=== PATIENT | male | born 1995 | race Caucasian/White ===

== ENCOUNTER 2018-02-28 | Emergency (ER) | payer OTHER, SELFPAY ==
[2018-02-28] MEDS ORDERED: HYDROCODONE/APAP 10/325 TAB ONE (00:40)
[2018-02-28] MEDS ORDERED: TETANUS & DIPHTHERIA TOX,ADULT 0.5 ML VIAL ONE (00:41)
--- NOTE | 2018-02-28 02:19 | ER ---
Nurse's Notes [facility] Name: Severino Yin Age: 22 yrs Sex: Male : 1995 Arrival Date: 02/28/2018 Time: 00:01 Bed 2 Private MD: Diagnosis: Puncture wound without foreign body of left hand Presentation: 02/28 00:15 Presenting complaint: Patient states: "I was fishing and I got a catfish spine in my jd3 left ring finger. As far as I know I pulled it all out, it just is hurting.". Transition of care: patient was not received from another setting of care. Onset of symptoms was February 28, 2018. Risk Assessment: Do you want to hurt yourself or someone else? Patient reports no desire to harm self or others. Initial Sepsis Screen: Does the patient meet any 2 criteria? No. Patient's initial sepsis screen is negative. Does the patient have a suspected source of infection? No. Patient's initial sepsis screen is negative. Care prior to arrival: None. 00:15 Method Of Arrival: Ambulatory j 00:15 Acuity: MARILEE 3 jd3 Triage Assessment: 00:25 Injury Description: Puncture sustained to palmar aspect of distal phalanx of left ring jd3 finger is superficial. Historical: - Allergies: 00:18 No Known Allergies; jd3 - Home Meds: 00:18 None [Active]; jd3 - PMHx: 00:18 None; jd3 - PSHx: 00:18 None; jd3 - Immunization history:: Adult Immunizations up to date, Flu vaccine is not up to date. - Social history:: Smoking status: Patient uses tobacco products, stopped 3 moths ago.. - Ebola Screening: : Patient negative for fever greater than or equal to 101.5 degrees Fahrenheit, and additional compatible Ebola Virus Disease symptoms. Screenin:24 Abuse screen: Denies threats or abuse. Nutritional screening: No deficits noted. jd3 Tuberculosis screening: No symptoms or risk factors identified. Fall Risk Ambulatory Aid- None/Bed Rest/Nurse Assist (0 pts). Gait- Normal/Bed Rest/Wheelchair (0 pts) Mental Status- Oriented to own ability (0 pts). Total [place] O Fall Scale indicates No Risk (0-24 pts). Assessment: 00:20 General: Appears in no apparent distress. uncomfortable, Behavior is calm, cooperative, jd3 appropriate for age, Smells of alcohol. Pain: Complains of pain in palmar aspect of distal phalanx of left ring finger Quality of pain is described as aching, tender. Neuro: Level of Consciousness is awake, alert, obeys commands, Oriented to person, place, time, situation. Cardiovascular: Capillary refill < 3 seconds Patient's skin is warm and dry. Respiratory: Airway is patent Respiratory effort is even, unlabored, Respiratory pattern is regular, symmetrical. GI: No signs and/or symptoms were reported involving the gastrointestinal system. : No signs and/or symptoms were reported regarding the genitourinary system. EENT: No signs and/or symptoms were reported regarding the EENT system. Derm: Skin is intact, Skin is dry, Skin is normal, Skin temperature is warm Wound noted palmar aspect of distal phalanx of left ring finger Wound is small puncture wound, about 1 cm in length, with small amount of bleeding, redness noted to the site. Musculoskeletal: Circulation, motion, and sensation intact. Range of motion: intact in all extremities. 01:43 Reassessment: Patient appears in no apparent distress at this time. Patient and/or jd3 family updated on plan of care and expected duration. Pain level reassessed. Patient is alert, oriented x 3, equal unlabored respirations, skin warm/dry/pink. Patient states feeling better. Vital Signs: 00:18 BP 140 / 82; Pulse 101; Resp 16 S; Temp 98.5(O); Pulse Ox 100% on R/A; Weight 86.18 kg jd3 (R); Height 6 ft. 2 in. (187.96 cm) (R); Pain 7/10; 01:43 BP 133 / 85; Pulse 93; Resp 16 S; Pulse Ox 95% on R/A; jd3 00:18 Body Mass Index 24.39 (86.18 kg, 187.96 cm) d3 ED Course: 00:01 Patient arrived in ED. am2 00:11 Merlin Hamilton, RN is Primary Nurse. jd3 00:17 Triage completed. jd3 00:20 Arm band placed on. jd3 00:24 Patient has correct armband on for positive identification. Bed in low position. Call j light in reach. Side rails up X2. Adult w/ patient. 00:25 Emerson Varma NP is PHCP. pm1 00:25 Home Knapp MD is Attending Physician. pm1 01:20 X-ray completed. Portable x-ray completed in exam room. Patient tolerated procedure mh1 well. 01:21 Hand Left 3 View XRAY In Process Unspecified. EDMS 02:17 David Tavares MD is Referral Physician. pm1 02:27 No provider procedures requiring assistance completed. Patient did not have IV access jd3 during this emergency room visit. Administered Medications: 00:39 Drug: Tetanus-Diphtheria Toxoid Adult 0.5 ml {Electroplater Automatic: [employer]. Exp: jd3 02/12/2020. Lot #: [id number]. } Route: IM; Site: left deltoid; 02:13 Follow up: Response: No adverse reaction jd3 00:39 Drug: [place] 10 mg-325 mg 1 tabs Route: PO; jd3 02:13 Follow up: Response: No adverse reaction jd3 02:17 Drug: Doxycycline 100 mg Route: PO; jd3 02:28 Follow up: Response: Medication administered at discharge. jd3 Outcome: 02:18 Discharge ordered by MD. pm1 02:27 Discharged to home ambulatory, with family. jd3 02:27 Condition: stable 02:27 Discharge instructions given to patient, family, Instructed on discharge instructions, follow up and referral plans. medication usage, Demonstrated understanding of instructions, follow-up care, medications, Prescriptions given X 2. 02:28 Patient left the ED. jd3 Signatures: Dispatcher [employer] EDSD Tasneem Gupta [facility] Emerson Varma NP BOTTLE WASHING MACHINE OPERATOR pm1 Edwige Boateng 2 Merlin Hamilton RN RN jd3 Corrections: (The following items were deleted from the chart) 00:41 00:15 Acuity: MARILEE 4 jd3 jd3
--- NOTE | 2018-02-28 02:19 | EDPHYS ---
Physician Documentation [facility] Name: Severino Yin Age: 22 yrs Sex: Male : 1995 Arrival Date: 02/28/2018 Time: 00:01 Bed 2 Private MD: ED Physician Home Knapp HPI: 02/28 00:57 This 22 yrs old Male presents to ER via Ambulatory with complaints of Finger pm1 Injury. 00:57 The patient or guardian reports a puncture wound, catfish spine. The complaints affect pm1 the palmar aspect of distal phalanx of left ring finger. Context: [place] head catfish. Onset: The symptoms/episode began/occurred just prior to arrival. Modifying factors: The symptoms are alleviated by nothing, the symptoms are aggravated by nothing. Associated signs and symptoms: Pertinent negatives: cyanosis distally, decreased sensation distally, fever, numbness distally, tingling distally. Severity of symptoms: in the emergency department the symptoms are unchanged. The patient has not experienced similar symptoms in the past. The patient has not recently seen a physician. Fishing in [place] and got punctured in left ring finger by catfish spine. he pulled the catfish off of him and he saw that the spine was intact. Historical: - Allergies: 00:18 No Known Allergies; jd3 - Home Meds: 00:18 None [Active]; jd3 - PMHx: 00:18 None; jd3 - PSHx: 00:18 None; jd3 - Immunization history:: Adult Immunizations up to date, Flu vaccine is not up to date. - Social history:: Smoking status: Patient uses tobacco products, stopped 3 moths ago.. - Ebola Screening: : Patient negative for fever greater than or equal to 101.5 degrees Fahrenheit, and additional compatible Ebola Virus Disease symptoms. ROS: 01:00 Constitutional: Negative for fever, chills, and weight loss, Eyes: Negative for injury, pm1 pain, redness, and discharge, ENT: Negative for injury, pain, and discharge, Neck: Negative for injury, pain, and swelling, Cardiovascular: Negative for chest pain, palpitations, and edema, Respiratory: Negative for shortness of breath, cough, wheezing, and pleuritic chest pain, Abdomen/GI: Negative for abdominal pain, nausea, vomiting, diarrhea, and constipation, Back: Negative for injury and pain, MS/Extremity: Negative for injury and deformity. 01:00 Neuro: Negative for headache, weakness, numbness, tingling, and seizure. 01:00 Skin: Positive for puncture, of the palmar aspect of distal phalanx of left ring finger. Exam: 01:00 Constitutional: This is a well developed, well nourished patient who is awake, alert, pm1 and in no acute distress. Head/Face: Normocephalic, atraumatic. Eyes: Pupils equal round and reactive to light, extra-ocular motions intact. Lids and lashes normal. Conjunctiva and sclera are non-icteric and not injected. Cornea within normal limits. Periorbital areas with no swelling, redness, or edema. Neck: Trachea midline, no thyromegaly or masses palpated, and no cervical lymphadenopathy. Supple, full range of motion without nuchal rigidity, or vertebral point tenderness. No Meningismus. Chest/axilla: Normal chest wall appearance and motion. Nontender with no deformity. No lesions are appreciated. Cardiovascular: Regular rate and rhythm with a normal S1 and S2. No gallops, murmurs, or rubs. Normal PMI, no JVD. No pulse deficits. Respiratory: Lungs have equal breath sounds bilaterally, clear to auscultation and percussion. No rales, rhonchi or wheezes noted. No increased work of breathing, no retractions or nasal flaring. Back: No spinal tenderness. No costovertebral tenderness. Full range of motion. 01:00 Skin: Appearance: normal except for affected area, injury, puncture(s), of the palmar aspect of distal phalanx of left ring finger. 01:00 Neuro: Orientation: is normal, Motor: is normal, moves all fours, Sensation: is normal, no obvious gross deficits. Vital Signs: 00:18 BP 140 / 82; Pulse 101; Resp 16 S; Temp 98.5(O); Pulse Ox 100% on R/A; Weight 86.18 kg jd3 (R); Height 6 ft. 2 in. (187.96 cm) (R); Pain 7/10; 01:43 BP 133 / 85; Pulse 93; Resp 16 S; Pulse Ox 95% on R/A; jd3 00:18 Body Mass Index 24.39 (86.18 kg, 187.96 cm) jd3 MDM: 00:25 Patient medically screened. pm1 00:57 Data reviewed: vital signs. Data interpreted: Pulse oximetry: on room air is 100 %. pm1 Interpretation: normal. 02:17 Counseling: I had a detailed discussion with the patient and/or guardian regarding: the pm1 historical points, exam findings, and any diagnostic results supporting the discharge/admit diagnosis, radiology results, the need for outpatient follow up, to return to the emergency department if symptoms worsen or persist or if there are any questions or concerns that arise at home. 02/28 00:26 Order name: Hand Left 3 View XRAY pm1 Administered Medications: 00:39 Drug: Tetanus-Diphtheria Toxoid Adult 0.5 ml {Beater Lead: [employer]. Exp: jd3 02/12/2020. Lot #: [id number]. } Route: IM; Site: left deltoid; 02:13 Follow up: Response: No adverse reaction jd3 00:39 Drug: [place] 10 mg-325 mg 1 tabs Route: PO; jd3 02:13 Follow up: Response: No adverse reaction jd3 02:17 Drug: Doxycycline 100 mg Route: PO; jd3 02:28 Follow up: Response: Medication administered at discharge. jd3 Disposition: 02/28/18 02:18 Discharged to Home. Impression: Puncture wound without foreign body of left hand. - Condition is Stable. - Discharge Instructions: Puncture Wound. - Prescriptions for Tylenol- Codeine #3 300-30 mg Oral Tablet - take 2 tablets by ORAL route every 6 hours As needed; 20 tablet. Doxycycline Hyclate 100 mg Oral Tablet - take 1 tablet by ORAL route every 12 hours; 20 tablet. - Medication Reconciliation Form, Thank You Letter, Antibiotic Education, Prescription Opioid Use form. - Follow up: Emergency Department; When: As needed; Reason: Worsening of condition. Follow up: David Tavares MD; When: 2 - 3 days; Reason: Recheck today's complaints, Continuance of care, Re-evaluation by your physician. - Problem is new. - Symptoms have improved. Addendum: 03/01/2018 18:52 Co-signature as Attending Physician, Home Knapp MD. g s Signatures: Dispatcher [employer] EDPA Emerson Varma NP SPECIAL EDUCATION MATH TEACHER pm1 Home Knapp MD MD gs Davies, Jonathon RN RN jd3 Corrections: (The following items were deleted from the chart) 02/28 02:28 02:18 02/28/2018 02:18 Discharged to Home. Impression: Puncture wound without foreign jd3 body of left hand. Condition is Stable. Forms are Medication Reconciliation Form, Thank You Letter, Antibiotic Education, Prescription Opioid Use. Follow up: Emergency Department; When: As needed; Reason: Worsening of condition. Follow up: David Tavares; When: 2 - 3 days; Reason: Recheck today's complaints, Continuance of care, Re-evaluation by your physician. Problem is new. Symptoms have improved. pm1
[2018-02-28] MEDS ORDERED: DOXYCYCLINE 100 MG CAP PO ONE (02:21)
--- NOTE | 2018-02-28 10:37 | RAD REPORT ---
EXAM DESCRIPTION: RAD - Hand Left 3 View - 02/28/2018 1:21 am CLINICAL HISTORY: ANIMAL BITE COMPARISON: No comparisons FINDINGS: No fracture or dislocation seen. Mild soft tissue swelling distal fourth digit. No radiopa que foreign body identified.
== END 2018-02-28 02:28 | disposition home or self-care (01) ==
LOC: ER
DX: S61.235A Puncture wound without foreign body of left ring finger without damage to nail, initial encounter (principal); W56.52XA Struck by other fish, initial encounter; Y93.89 Activity, other specified; Y92.832 Beach as the place of occurrence of the external cause; Z23 Encounter for immunization
CPT/HCPCS: 90714; 99283